=== PATIENT | male | born 1965 | race Hispanic/Latino ===

== ENCOUNTER 2019-12-16 23:29 | Emergency (ER) | payer SELFPAY ==
[~2019-12-16] VITALS: Ht 165.1 cm; Wt 74.8 kg
[2019-12-17] MEDS ORDERED: HYDROCODONE/APAP 7.5MG-325MG 1 EA TAB PO PRN
[2019-12-17] MEDS ORDERED: DIAZEPAM 5 MG TAB PO SCH (00:15)
--- OUTSIDE RECORDS SUMMARY | 2019-12-17 00:30 | XMS REPORT | Continuity of Care Document ---
Author Author [facility] t Organization [facility] Address [address] [place] [address] Phone Unavailable Care Team Providers Care Resource Coordinator Name Role Phone Yue MENCHACA, [facility] PCP Jassi Dupree MD, Tyra Saleem Attphys [phone] Reza Handy MD Attphys Payers Payer Name Policy Type Policy Number Effective Date Expiration Date S courtney [facility] [id number] UNSCREENEDxxxxxxxx [id number] [place] [address] xxxxxxxxx 2019 00:00:00 [facility] Problems Condition Name Condition Details Condition Category Status Onset Date Resolution Date Last Treatment Date Treating Clinician Comments Source Positive occult stool blood test - colon oscopy ordered - pt to call back to schedule Positive occult stool blood test - colon oscopy ordered - pt to call back to schedule Disease Active 2019-11-02 00:00:00 [facility] MSSA bacteremia MSSA bacteremia Disease Active 2018-07-10 00:00:00 [facility] Leukocytosis Leukocytosis Disease Active 2018-06-28 00:00:00 [facility] Blind hypertensive eye, right Blind hypertensive eye, right Disease Active 2015-12-10 00:00:00 [facility] ealt Proliferative diabetic retinopathy of both eyes Prolif erative diabetic retinopathy of both eyes Disease Active 2015-12-10 00:00:00 [facility] Vitamin D deficiency Vitamin D deficiency Disease Active 00:00:00 [facility] Hyperlipemia Hyperlipemia Disease Active 2014-10-09 00:00:00 [facility] Hypertriglyceridemia Hypertriglyceridemia Disease Active 00:00:00 [facility] Proliferative diabetic retinopathy Proliferative diabetic retino ismael Disease Active 2014-09-27 00:00:00 [facility] 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 Disease Active 2014-09-27 00:00:00 [facility] Visual loss, one eye, no light perception (NLP) Visual loss, one eye, no light perception (NLP) Disease Active 2014-09-27 00:00:00 [facility] Type 2 diabetes mellitus with complicati on, with long-term current use of insulin Type 2 diabetes mellitus with complicati on, with long-term current use of insulin Disease Active 2014-09-15 00:00:00 [facility] H/O eye surgery left eye , Laser per pt H/O eye surger y left eye , Laser per pt Disease Active 2014-09-15 00:00:00 [facility] Nicotine dependence Nicotine dependence Disease Active 2014-09-15 00:00 :00 [facility] Blindness of right eye Blindness of right eye Disease Active 2014-09-15 00:00:00 [facility] Abdominal pain Abdominal pain Disease Active 2012-11-22 00:00:00 [facility] Acute right eye pain Acute right eye pain Disease Active [facility] Acute suppurative otitis media of right ear without spontaneous rupture of tympanic membrane Acute suppurative otitis media of right ear without spontaneous rupture of tympanic membrane Disease Active [facility] Positive blood culture Positive blood culture Disease Active [facility] Therapeutic drug monitoring Therapeutic drug monitoring Disease Active [facility] Acute bacterial endocarditis Acute bacterial endocarditis Disease Active [facility] Allergies, Adverse Reactions, Alerts Allergy Name Allergy Type Status Severity Reaction(s) Onset Date Inacti ve Date Treating Clinician Comments Source No Known Allergies DA Active U 2012-12-12 00:00:00 [facility] Social History Social Habit Start Date Stop Date Quantity Comments Source History of tobacco use Cigarette Smoker [facility] Sex Assigned At [facility] Alcohol intake 2018-07-14 00:00:00 2018-07-14 00:00:00 Current drinker of alcohol (finding) [facility] Tobacco Comment 2018-07-09 00:00:00 2018-07-09 00:00:00 half pack per week. [facility] Alcohol Comment 2018-07-09 00:00:00 2018-07-09 00:00:00 occasional [facility] History SDOH Food Worry 2018-04-27 00:00:00 2018-04-27 00:00:00 1 [facility] History SDOH Food Scarcity 2018-04-27 00:00:00 2018-04-27 00:00:00 1 [facility] Smoking Status Start Date Stop Date Source Current some day smoker 2018-07-14 00:00:00 [facility] Medications Ordered Medication Name Filled Medication Name Start Date Stop Da te Current Medication? Ordering Clinician Indication Dosage Frequency Signature (SIG) Comments Components Source lisinopriL (ZESTRIL) 2.5 mg tablet 2019-05-24 00:00:00 Yes Poorly controlled type 2 diabetes mellitus 2.5mg QD Take 1 tablet by mouth daily. [facility] atorvastatin (LIPITOR) 40 mg tablet 2019-05-24 00:00:00 Yes Other hyperlipidemia 40mg Take 1 tablet by mouth at bedtime nightly. [facility] metFORMIN (GLUCOPHAGE) 500 mg tablet 2019-05-24 00:00:00 Yes Poorly controlled type 2 diabetes mellitus 1000mg Take 2 tablets by mouth 2 times daily (with meals). [facility] blood glucose test strips 2019-05-24 00:00:00 Yes Type II diabetes mellitus Check blood glucose 3 times daily. [facility] pen needle, diabetic 31 gauge x 3/16" needles 2019-05-24 00: 00:00 Yes Type II diabetes mellitus Inject under the skin 3 times daily. [facility] lancets 28 gauge 2019-05-24 00:00:00 Yes Type 2 diabetes mellitus without complication, with long-term current use of insulin Check blood glucose 3 times daily. [facility] tropicamide (MYDRIACYL) 0.5 % ophthalmic solution 2019-05-24 00:00:00 2019-11-20 23:59:00 No Type II diabetes mellitus 1[drp] Instill 1 Drop in each eye once as needed for up to 1 dose (for poor retina scan image). [facility] insulin detemir U-100 (LEVEMIR FLEXTOUCH U-100 INSULN) 100 u nit/mL (3 mL) Pen 2019-05-24 00:00:00 2019-08-22 23:59:00 No Type II diabetes alex litus 75U Q.5D Inject 75 Units under the skin 2 times daily [facility] polyethylene glycol (GOLYTELY) 236-22.74-6.74 -5.86 gram ora l solution 2018-07-23 00:00:00 Yes Positive occult stool blood te st Add lukewarm drinking water to the fill yuri (4 liters) and shake. Drink as directed by your doctor.. [facility] tamsulosin (FLOMAX) 0.4 mg extended release capsule 2018-07-15 00:00:00 2019-05-24 00:00:00 No Acute bacterial endocarditis .4mg QD Take 1 capsule by mouth daily. [facility] insulin detemir U-100 (LEVEMIR FLEXTOUCH U-100 INSULN) 100 u nit/mL (3 mL) Pen 2018-06-28 00:00:00 2019-05-24 00:00:00 No Type II diabetes alex litus 75U Q.5D Inject 75 Units under the skin 2 times daily [facility] lisinopril (ZESTRIL) 2.5 mg tablet 2018-06-28 00:00:00 202 00:00:00 No Poorly controlled type 2 diabetes mellitus 2.5mg QD Take 1 tablet by mouth daily. [facility] atorvastatin (LIPITOR) 40 mg tablet 2018-06-28 00:00:0 0 2019-05-24 00:00:00 No Other hyperlipidemia 40mg Take 1 tablet by mouth at b edtime nightly. [facility] metFORMIN (GLUCOPHAGE) 500 mg tablet 2018-06-28 00:00: 00 2019-05-24 00:00:00 No Poorly controlled type 2 diabetes mellitus 500mg Take 1 tablet by mouth 2 times daily (with meals). [facility] fenofibrate nanocrystallized (TRICOR) 145 mg tablet 2018-06-28 00:00:00 2019-05-24 00:00:00 No Hypertriglyceridemia 145mg QD Take 1 tablet by mouth daily. [facility] triamcinolone (KENALOG) 0.1 % ointment 2018-06-10 0 00:00:00 2019-05-24 00:00:00 No Rash and other nonspecific skin eruption Q.5D Apply to affected area 2 times daily. [facility] clotrimazole (LOTRIMIN) 1 % topical cream 2018- 5-20 00:00:00 2019-05-24 00:00:00 No Onychomycosis Q.5D Apply to af fected area 2 times daily For the feet. [facility] blood glucose meter 2017-10-06 00:00:00 Yes Diabetes type 2, uncontrolled [facility].. [facility] blood glucose test strips 2017-10-06 00:00:00 2019-05-24 00: 00:00 No Type II diabetes mellitus Check blood glucose 3 times daily. [facility] pen needle, diabetic 31 gauge x 3/16" needles 20 27-07-04 00:00:00 2019-05-24 00:00:00 No Type II diabetes mellitus Inject under the skin 3 times daily. 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 [facility] lancets 28 gauge 2016-10-01 00:00:00 2019-05-24 00:00:00 No Uncontrolled type 2 diabetes mellitus with other specified complication, unspecified termite treater helper insulin use status Check blood glucose 3 times daily. [facility] Immunizations Ordered Immunization Name Filled Immunization Name Date Status Comments Source Influenza Vaccine, Seasonal, Injectable 2017-03-02 00:00:0 0 Completed [facility] Pneumococcal 13-valent conj 0.5 mL injection 2016-06-05 00 :00:00 Completed [facility] Tdap Tetanus, diphtheria, acellular pertussis Vaccine 2016-05-26 00:00:00 Completed [facility] Influenza Vaccine 2015-12-27 00:00:00 Completed [facility] Influenza Vaccine 2015-04-09 00:00:00 Completed [facility] PPV 23 Pneumococcal Polysaccaride 2015-04-09 00:00:00 Comp leted [facility] Procedures Procedure Date / Time Performed Performing Clinician Sourc e COMPREHENSIVE METABOLIC PANEL 2019-05-26 14:40:00 Harper Scott [facility] HEMOGLOBIN A1C 2019-05-26 14:40:00 Harper Scott is [facility] LIPID PROFILE 2019-05-26 14:40:00 Harper Scott is [facility] HEMOCCULT KIT FOR SPECIMEN COLLECTION AT HOME 2019-05-24 10: 46:19 Harper Scott [facility] Plan of Care Planned Activity Planned Date Details Comments Source Future Scheduled Test 2020-05-25 00:00:00 Hemoglobin A1c karen surement (procedure) [code = 57453099] [facility] Scheduled Test 2019-07-02 00:00:00 Screening for yamile gnant neoplasm of colon (procedure) [code = 279807834] [facility] Scheduled Test 2019-04-28 00:00:00 DM Foot Exam (Year ly) [code = DM Foot Exam (Yearly)] [facility] Scheduled Test 2019-04-28 00:00:00 DM Retinal Exam (Y early) [code = DM Retinal Exam (Yearly)] [facility] Encounters Start Date/Time End Date/Time Encounter Type Admission Type Attendi RUST Care Department Encounter ID Source 2018-07-14 15:16:25 Inpatient [facility] [id number] [facility] 2018-07-12 09:03:39 Inpatient [facility] [id number] [facility] 2018-07-10 09:31:54 Inpatient [facility] [id number] [facility] 2018-07-10 09:07:03 Inpatient [facility] [id number] [facility] 2018-11-26 00:00:00 2018-11-26 00:00:00 Outpatient [facility] [id number] [facility] 2018-10-26 00:00:00 2018-10-26 00:00:00 Outpatient [facility] [id number] [facility] 2018-10-05 00:00:00 2018-10-05 00:00:00 Outpatient [facility] [id number] [facility] 2018-09-27 00:00:00 2018-09-27 00:00:00 Outpatient [facility] [id number] [facility] 2018-08-24 00:00:00 2018-08-24 00:00:00 Outpatient [facility] [id number] [facility] 2018-08-17 00:00:00 2018-08-17 00:00:00 Outpatient [facility] [id number] [facility] 2018-08-10 00:00:00 2018-08-10 00:00:00 Outpatient [facility] [id number] [facility] 2018-08-09 08:47:08 2018-08-09 08:47:08 Outpatient [facility] [id number] [facility] 2018-08-09 08:20:11 2018-08-09 08:20:11 Outpatient [facility] [id number] [facility] 2018-08-09 00:00:00 2018-08-09 00:00:00 Outpatient [facility] [id number] [facility] 2018-08-09 00:00:00 2018-08-09 00:00:00 Outpatient [facility] [id number] [facility] 2018-08-02 00:00:00 2018-08-02 00:00:00 Outpatient [facility] [id number] [facility] 2018-07-28 00:00:00 2018-07-28 00:00:00 Outpatient [facility] [id number] [facility] 2018-07-27 00:00:00 2018-07-27 00:00:00 Outpatient [facility] [id number] [facility] 2018-07-26 00:00:00 2018-07-26 00:00:00 Outpatient [facility] [id number] [facility] 2018-07-19 09:34:27 2018-07-19 09:34:27 Outpatient [facility] [id number] [facility] 2018-07-19 00:00:00 2018-07-19 00:00:00 Outpatient [facility] [id number] [facility] 2018-07-13 00:00:00 2018-07-13 00:00:00 Outpatient [facility] [id number] [facility] 2018-07-09 00:00:00 2018-07-09 00:00:00 Emergency [facility] [id number] [facility] 2018-07-08 14:14:03 2018-07-08 14:14:03 Emergency [facility] [id number] [facility] 2018-07-08 13:53:56 2018-07-08 13:53:56 Inpatient [facility] [id number] [facility] 2018-07-01 15:03:51 2018-07-01 15:03:51 Outpatient [facility] [id number] [facility] 2018-06-28 09:43:09 2018-06-28 09:43:09 Outpatient [facility] [id number] [facility] 2018-06-28 08:41:35 2018-06-28 08:41:35 Outpatient [facility] [id number] [facility] 2018-04-27 13:34:01 2018-04-27 13:34:01 Outpatient [facility] [id number] [facility] 2018-04-27 13:29:45 2018-04-27 13:29:45 Outpatient [facility] [id number] [facility] 2018-04-27 12:47:49 2018-04-27 12:47:49 Outpatient [facility] [id number] [facility] 2018-04-14 08:55:00 2018-04-14 08:55:00 Emergency [facility] [id number] [facility] 2017-12-15 00:00:00 2017-12-15 00:00:00 Outpatient [facility] [id number] [facility] 2017-12-15 00:00:00 2017-12-15 00:00:00 Outpatient [facility] [id number] [facility] 2017-10-05 00:00:00 2017-10-05 00:00:00 Outpatient [facility] [id number] [facility] 2017-10-05 00:00:00 2017-10-05 00:00:00 Outpatient [facility] [id number] [facility] 2017-09-22 00:00:00 2017-09-22 00:00:00 Outpatient [facility] [id number] [facility] 2017-09-09 00:00:00 2017-09-09 00:00:00 Outpatient [facility] [id number] [facility] 2017-07-14 00:00:00 2017-07-14 00:00:00 Outpatient [facility] [id number] [facility] 2017-06-16 00:00:00 2017-06-16 00:00:00 Outpatient [facility] [id number] [facility] 2017-06-16 00:00:00 2017-06-16 00:00:00 Outpatient [facility] [id number] [facility] 2017-06-09 15:43:36 2017-06-09 15:43:36 Outpatient [facility] [id number] [facility] 2017-06-09 15:07:50 2017-06-09 15:07:50 Outpatient [facility] [id number] [facility] 2017-05-20 00:00:00 2017-05-20 00:00:00 Outpatient [facility] [id number] [facility] 2017-04-20 16:09:34 2017-04-20 16:09:34 Outpatient [facility] [id number] [facility] 2017-04-20 00:00:00 2017-04-20 00:00:00 Outpatient [facility] [id number] [facility] 2017-03-13 00:00:00 2017-03-13 00:00:00 Outpatient [facility] [id number] [facility] 2017-03-03 12:43:31 2017-03-03 12:43:31 Outpatient [facility] [id number] [facility] 2017-03-02 15:40:28 2017-03-02 15:40:28 Outpatient [facility] [id number] [facility] 2017-03-02 13:57:45 2017-03-02 13:57:45 Outpatient [facility] [id number] [facility] 2016-11-25 00:00:00 2016-11-25 00:00:00 Outpatient [facility] [id number] [facility] 2016-11-17 00:00:00 2016-11-17 00:00:00 Outpatient [facility] [id number] [facility] 2016-11-07 00:00:00 2016-11-07 00:00:00 Outpatient [facility] [id number] [facility] 2016-10-01 09:15:08 2016-10-01 09:15:08 Outpatient [facility] [id number] [facility] 2016-10-01 08:26:11 2016-10-01 08:26:11 Outpatient [facility] [id number] [facility] 2016-09-12 12:56:13 2016-09-12 12:56:13 Outpatient [facility] [id number] [facility] 2016-07-23 00:00:00 2016-07-23 00:00:00 Outpatient [facility] [id number] [facility] 2016-07-03 13:09:04 2016-07-03 13:09:04 Outpatient [facility] [id number] [facility] Results Test Description Test Time Test Comments Results Result Comments Source Hemoglobin A1C 2019-05-26 21:28:00 Test Item Hemoglobin A1c (test code = 4548-4) 12.6 % 4.3-6.1 H Estimated Average Glucose (test code = 19318281) 315 mg/dL 70-11 0 H Lab Interpretation (test code = 82577-0) [facility]normal [facility] [id number] 21:16:00* Test Item Value Reference Range Interpretation Comments Cholesterol (test code = 2093-3) 249.0 mg/dL <=200.0 H Triglyceride (test code = 80524128) 612 mg/dL <150 H HDL (test code = 2085-9) 40.0 mg/dL See Reference Range Narrative . LDL (test code = 75787-7) Tr iglyceride value is > 400 mg/dl. Unable to calculate LDL value due to high triglyceride. Patient Fasting? (test code = 22821641) No ORVILLE (test code = ORVILLE) Patient is not fasting. For a triglyceride result greater than 440 mg/dL, consider re-testing when the patient is in a fasting state. Lab Interpretation (test code = 58964-7) [facility] [id number] 21:16:00* Test Item Value Reference Range Interpretation Comments Sodium (test code = 2951-2) 137 mmol/L 136-145 Potassium (test code = 2823-3) 4.6 mmol/L 3.5-5.1 Chloride (test code = 2075-0) 102 mmol/L 98-107 CO2 (test code = 87779312) 27 mmol/L 21-31 Glucose (test code = 86126258) 273 mg/dL 70-110 H Calcium (test code = 70784631) 9.4 mg/dL 8.6-10.3 Urea Nitrogen (test code = 78273970) 24.0 mg/dL 7-25 Creatinine (test code = 09880920) 1.0 mg/dL 0.7-1.3 Alkaline Phosphatase (test code = 52194787) 74 U/L 34-104 ALT (test code = 54382261) 24 U/L 7-52 AST (test code = 58639626) 13 U/L 13-39 Total Protein (test code = 2885-2) 7.1 g/dL 6-8.3 GFR, Estimated (test code = 13726242) 78 >=90 mL/min/1.73 m2 L Albumin (test code = 48210-2) 4.1 g/dL 4.2-5.5 L Anion Gap (test code = 19145611) 8 mmol/L 5-16 Lab Interpretation (test code = 17647-2) Abnormal [facility] METABOLIC [id number] 06:46:00* Test Item Value Reference Range Interpretation Comments SODIUM (test code = NA) 136 mmol/L 136-145 N POTASSIUM (test code = K) 4.5 mmol/L 3.5-5.1 N CHLORIDE (test code = CL) 102.0 mmol/L 98-107 N CARBON DIOXIDE (test code = CO2) 27.0 mmol/L 21-32 N ANION GAP (test code = GAP) 11.5 10-20 N GLUCOSE (test code = GLU) 231 mg/dL 74-106 H BLOOD UREA NITROGEN (test code = BUN) 14 mg/dL 7-18 N GLOMERULAR FILTRATION RATE (test code = GFR) > 60 mL/min >=60 Estimated GFR by using Modified MDRD formula.Chronic kidney disease is defined as either kidney damageor GFR <60 mL/min/1.73 m2 for >3 months. CREATININE (test code = CREAT) 0.80 mg/dL 0.7-1.3 N BUN/CREATININE RATIO (test code = BUN/CREA) 17.5 10-20 N CALCIUM (test code = CA) 8.7 mg/dL 8.5-10.1 N HEPATIC FUNCTION [id number] 06:46:00* Test Item Value Reference Range Interpretation Comments TOTAL PROTEIN (test code = PROT) 7.8 gram/dL 6.4-8.2 N ALBUMIN (test code = ALB) 2.5 g/dL 3.4-5.0 L GLOBULIN (test code = GLOB) 5.3 gram/dL 2.7-4.2 H ALBUMIN/GLOBULIN RATIO (test code = A/G) 0.5 0.75-1.50 L BILIRUBIN TOTAL (test code = BILT) 0.20 mg/dL 0.0-1.0 N BILIRUBIN DIRECT (test code = BILD) < 0.05 mg/dL 0.0-0.20 N SGOT/AST (test code = AST) 13 IUnit/L 15-37 L SGPT/ALT (test code = ALT) 15 IUnit/L 12-78 N ALKALINE PHOSPHATASE TOTAL (test code = ALKP) 89 IUnit/L 45-117 N Note change in reference range due to change in reagent. [id number] 06:46:00* Test Item Value Reference Range Interpretation Comments LIPASE (test code = LIP) 120 U/L 73.0-393.0 N BASIC METABOLIC [id number] 06:42:00* Test Item Value Reference Range Interpretation Comments SODIUM (test code = NA) 136 mmol/L 136-145 N POTASSIUM (test code = K) 4.5 mmol/L 3.5-5.1 N CHLORIDE (test code = CL) 102.0 mmol/L 98-107 N CARBON DIOXIDE (test code = CO2) mmol/L 21-32 ANION GAP (test code = GAP) 10-20 GLUCOSE (test code = GLU) mg/dL 74-106 BLOOD UREA NITROGEN (test code = BUN) mg/dL 7-18 GLOMERULAR FILTRATION RATE (test code = GFR) mL/min >=60 CREATININE (test code = CREAT) mg/dL 0.7-1.3 BUN/CREATININE RATIO (test code = BUN/CREA) 10-20 CALCIUM (test code = CA) mg/dL 8.5-10.1 HEPATIC FUNCTION [id number] 06:42:00* Test Item Value Reference Range Interpretation Comments TOTAL PROTEIN (test code = PROT) gram/dL 6.4-8.2 ALBUMIN (test code = ALB) g/dL 3.4-5.0 GLOBULIN (test code = GLOB) gram/dL 2.7-4.2 ALBUMIN/GLOBULIN RATIO (test code = A/G) 0.75-1.50 BILIRUBIN TOTAL (test code = BILT) mg/dL 0.0-1.0 BILIRUBIN DIRECT (test code = BILD) mg/dL 0.0-0.20 SGOT/AST (test code = AST) IUnit/L 15-37 SGPT/ALT (test code = ALT) IUnit/L 12-78 ALKALINE PHOSPHATASE TOTAL (test code = ALKP) IUnit/L 45-117 [id number] 06:42:00* Test Item Value Reference Range Interpretation Comments LIPASE (test code = LIP) U/L 73.0-393.0 CBC W/O [id number] 06:40:00* Test Item Value Reference Range Interpretation Comments WHITE BLOOD CELL (test code = WBC) 11.8 K/mm3 4.5-12.5 N RED BLOOD CELL (test code = RBC) 3.99 mill/mm3 4.0-5.8 L HEMOGLOBIN (test code = HGB) 11.5 gram/dL 13.0-17.5 L HEMATOCRIT (test code = HCT) 34.8 % 42.0-52.0 L MEAN CELL VOLUME (test code = MCV) 87.2 fL 80-98 N MEAN CELL HGB (test code = MCH) 28.8 picogram 27.0-33.0 N MEAN CELL HGB CONCETRATION (test code = MCHC) 33.0 gram/dL 33.0-36. 0 N RED CELL DISTRIBUTION WIDTH (test code = RDW) 11.9 % 11.6-16. 2 N PLATELET COUNT (test code = PLT) 385 K/mm3 150-450 N MEAN PLATELET VOLUME (test code = MPV) 10.6 fL 6.7-11.0 N - US RETROPERITONEAL [id number] 05:35:00 Name: KYLE BROWER [facility] : 1965 Age/S: 53 / M [address] Unit #: [id number] Loc: [place] [address] Phys: Dorian Joyce NP Acct: [id number] Dis Date: Status: PRE ER PHONE #: [phone] Exam Date: 04/18/2018442 FAX #: [phone] Reason: PROBLEMS VOIDING-POSS ENLARGE PROSTATE-RETENTIO EXAMS: CPT CODE: [id number] US RETROPERITONEAL COM [id number] HISTORY: Pain Location: C3 FINDINGS: The right kidney measures 12.3 x 5.7cm and the left measures 12.4 x 6.0 cm. No cystic lesions demonstrated. No solid renal mass is demonstrated. No hydronephrosis. There is normal renal cortical thickness and echogenicity. The bladder is distended with bladder wall thickening noted. Estimated bladder volume is 287 mL. The patient was unable to significantly void with estimated postvoid volume of 258 mL. IMPRESSION: 1. Mildly distended bladder with significant postvoid residual with inability to void. 2. No hydronephrosis. at 0535 Reported and signed by: Davidson Chance MD CC: Sandro Lyon MD; Dorian Joyce CUSTODIAL AIDE Technologist: Hien Silva(S)(ARRT) Trnscb Date/Time: 04/18/2018 (0535) [id number] Orig Print D/T: S: 04/18/2018 (0538) Probe: PAGE 1 Signed Report URINALYSIS COMPLETE 2018-04-18 04:14:00* Test Item Value Reference Range Interpretation Comments UA COLOR (test code = COLU) STRAW YELLOW UA APPEARANCE (test code = APPU) CLEAR CLEAR UA GLUCOSE DIPSTICK (test code = DGLUU) >=500 mg/dL NEGATIVE A UA BILIRUBIN DIPSTICK (test code = BILU) NEGATIVE mg/dL NEGATIVE UA KETONE DIPSTICK (test code = KETU) Negative mg/dL NEGATIVE UA SPECIFIC GRAVITY (test code = SGU) 1.010 1.001-1.035 UA BLOOD DIPSTICK (test code = RODRIGUE) Negative NEGATIVE UA PH DIPSTICK (test code = LEON) 7.0 5.0-8.0 UA PROTEIN DIPSTICK (test code = PROU) Negative mg/dL NEGATIVE UA UROBILINIOGEN DIPSTICK (test code = URO) NEGATIVE mg/dL NEGATIVE UA NITRITE DIPSTICK (test code = GEE) NEGATIVE NEGATIVE UA LEUKOCYTE ESTERASE W REFLEX (test code = LEUUR) 1+ NEG ATIVE A UA WBC (test code = WBCU) 11-20 #/HPF 0-5 A UA RBC (test code = RBCU) 0-2 #/HPF 0-5 Urine Source? Clean CatchURINALYSIS [id number] 01:06:00* Test Item Value Reference Range Interpretation Comments UA COLOR (test code = COLU) YELLOW YELLOW UA APPEARANCE (test code = APPU) CLEAR CLEAR UA GLUCOSE DIPSTICK (test code = DGLUU) 1000(3+) mg/dL NEGATIVE A UA BILIRUBIN DIPSTICK (test code = BILU) NEGATIVE mg/dL NEGATIVE UA KETONE DIPSTICK (test code = KETU) neg mg/dL NEGATIVE UA SPECIFIC GRAVITY (test code = SGU) 1.005 1.001-1.035 UA BLOOD DIPSTICK (test code = RODRIGUE) neg Michael/uL NEGATIVE UA PH DIPSTICK (test code = LEON) 6.0 5.0-8.0 UA PROTEIN DIPSTICK (test code = PROU) 30 (1+) mg/dL Neg-15 A UA UROBILINIOGEN DIPSTICK (test code = URO) norm mg/dL 0.0-0.2 UA NITRITE DIPSTICK (test code = GEE) NEGATIVE NEGATIVE UA LEUKOCYTE ESTERASE DIPSTICK (test code = LEUU) 25 (Trace) uL NEG ATIVE A UA WBC (test code = WBCU) 5-10 per HPF 0-5 A IN SOME URINARY TRACT INFECTIONS THERE MAY NOT BE ENOUGHWBCs IN THE URINE TO TRIGGER AN AUTOMATIC (REFLEX) URINECULTURE. A SEPERATE ORDER FOR URINE CULTURE IS RECOMMENDEDIF THERE IS STRONG SUPPORT FOR A URINARY TRACT INFECTIONCLINICALLY. UA RBC (test code = RBCU) 0-2 per HPF 0-5 UA EPITHELIAL CELLS (test code = EPIU) None seen per HPF Few UA BACTERIA (test code = BACU) NONE SEEN per HPF NONE Urine Source? Clean CatchURINALYSIS [id number] 00:59:00* Test Item Value Reference Range Interpretation Comments UA COLOR (test code = COLU) YELLOW YELLOW UA APPEARANCE (test code = APPU) CLEAR CLEAR UA GLUCOSE DIPSTICK (test code = DGLUU) 1000(3+) mg/dL NEGATIVE A UA BILIRUBIN DIPSTICK (test code = BILU) NEGATIVE mg/dL NEGATIVE UA KETONE DIPSTICK (test code = KETU) neg mg/dL NEGATIVE UA SPECIFIC GRAVITY (test code = SGU) 1.005 1.001-1.035 UA BLOOD DIPSTICK (test code = RODRIGUE) neg Michael/uL NEGATIVE UA PH DIPSTICK (test code = LEON) 6.0 5.0-8.0 UA PROTEIN DIPSTICK (test code = PROU) 30 (1+) mg/dL Neg-15 A UA UROBILINIOGEN DIPSTICK (test code = URO) norm mg/dL 0.0-0.2 UA NITRITE DIPSTICK (test code = GEE) NEGATIVE NEGATIVE UA LEUKOCYTE ESTERASE DIPSTICK (test code = LEUU) 25 (Trace) uL NEG ATIVE A UA WBC (test code = WBCU) per HPF 0-5 Urine Source? Clean Catch
--- OUTSIDE RECORDS SUMMARY | 2019-12-17 00:30 | XMS REPORT | Clinical Summary ---
Author Author [facility] ict Organization 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 Active blood glucose Use as 1 Kit 0 meterIndications: directed.. 8 Diabetes type 2, uncontrolled Active polyethylene glycol Add lukewarm 4000 mL 0 07/23 (GOLYTELY) 236-22.74-6.74 drinking 9 -5.86 gram oral water to the solutionIndications: fill yuri (4 Positive occult stool liters) and blood test shake. Drink as directed by your doctor.. Active lisinopriL (ZESTRIL) 2.5 Take 1 tablet 90 tablet 3 mg tabletIndications: by mouth 0 Poorly controlled type 2 daily. diabetes mellitus Active atorvastatin (LIPITOR) 40 Take 1 tablet 90 tablet 3 mg tabletIndications: by mouth at 0 Other hyperlipidemia bedtime nightly. Active metFORMIN (GLUCOPHAGE) Take 2 180 tablet 3 500 mg tabletIndications: tablets by 0 Poorly controlled type 2 mouth 2 times diabetes mellitus daily (with meals). Active blood glucose test Check blood 100 Each 3 02 stripsIndications: Type glucose 3 0 II diabetes mellitus times daily. Active pen needle, diabetic 31 Inject under 1 Box 11 0 gauge x 3/16" the skin 3 0 needlesIndications: Type times daily. II diabetes mellitus Active lancets 28 Check blood 100 Each 3 gaugeIndications: Type 2 glucose 3 0 diabetes mellitus without times daily. complication, with long-term current use of insulin 05/24/2019 Discontinued (Reorder) lancets 28 Check blood 100 Each 3 gaugeIndications: glucose 3 7 Uncontrolled type 2 times daily. diabetes mellitus with other specified complication, unspecified terminal system operator insulin use status 05/24/2019 Discontinued (Reorder) pen needle, diabetic 31 Inject under 1 Box 11 0 gauge x 3/16" the skin 3 8 needlesIndications: Type times daily. II diabetes mellitus 05/24/2019 Discontinued (Reorder) blood glucose test Check blood 100 Each 3 01 stripsIndications: Type glucose 3 8 II diabetes mellitus times daily. 05/24/2019 Discontinued (Reorder) insulin detemir U-100 Inject 75 136 mL 3 06/10 (LEVEMIR FLEXTOUCH U-100 Units under 9 INSULN) 100 unit/mL (3 the skin 2 mL) PenIndications: Type times daily II diabetes mellitus 05/24/2019 Discontinued (Reorder) lisinopril (ZESTRIL) 2.5 Take 1 tablet 90 tablet 3 06/28/201 mg tabletIndications: by mouth 9 Poorly controlled type 2 daily. diabetes mellitus 05/24/2019 Discontinued (Reorder) atorvastatin (LIPITOR) 40 Take 1 tablet 90 tablet 3 06/28/201 mg tabletIndications: by mouth at 9 Other hyperlipidemia bedtime nightly. 05/24/2019 Discontinued (Reorder) metFORMIN (GLUCOPHAGE) Take 1 tablet 180 tablet 3 0 500 mg tabletIndications: by mouth 2 9 Poorly controlled type 2 times daily diabetes mellitus (with meals). 05/24/2019 Discontinued (Therapy comple brenton) fenofibrate Take 1 tablet 90 tablet 2 nanocrystallized (TRICOR) by mouth 9 145 mg tabletIndications: daily. Hypertriglyceridemia 05/24/2019 Discontinued (Therapy comple brenton) triamcinolone (KENALOG) Apply to 80 g 0 0.1 % affected area 9 ointmentIndications: Rash 2 times and other nonspecific daily. skin eruption 05/24/2019 Discontinued (Therapy comple brenton) clotrimazole (LOTRIMIN) 1 Apply to 28.35 g 0 % topical affected area 9 creamIndications: 2 times daily Onychomycosis For the feet. 05/24/2019 Discontinued (Therapy comple brenton) tamsulosin (FLOMAX) 0.4 Take 1 90 capsule 1 mg extended release capsule by 9 capsuleIndications: mouth daily. Pyelonephritis, MSSA bacteremia, Acute bacterial endocarditis 08/22/2019 insulin detemir U-100 Inject 75 135 mL 0 05/10 (LEVEMIR FLEXTOUCH U-100 Units under 0 INSULN) 100 unit/mL (3 the skin 2 mL) PenIndications: Type times daily II diabetes mellitus 11/20/2019 tropicamide (MYDRIACYL) Instill 1 15 mL 0 0.5 % ophthalmic Drop in each 0 solutionIndications: Type eye once as II diabetes mellitus needed for up to 1 dose (for poor retina scan image). 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 09/27/2014 Visual loss, one eye, no light perception (NLP) 09/09 Type 2 diabetes mellitus with complication, with long -term current use of 09/15/2014 insulin H/O eye surgery left eye , Laser per pt 09/15/2014 Nicotine dependence 09/15/2014 Blindness of right eye 09/15/2014 Abdominal pain 11/22/2012 Acute right eye pain Acute suppurative otitis media of right ear without spontaneous rupture of tympanic membrane Positive blood culture Therapeutic drug monitoring Acute bacterial endocarditis Encounters Care Team Description Date Type Specialty Harper Scott MD Cataract of right eye, unspecified catar act type (Primary Dx); Type II diabetes mellitus; Poorly controlled type 2 diabetes mellitus; Other hyperlipidemia; Diabetes type 2, uncontrolled; Type 2 diabetes mellitus without complication, with long-term current use of insulin; Colon cancer screening 05/24/2019 Telephonic Family Practice Encounter Harper Scott MD 05/24/2019 Orders Only Family Practice Reza Handy Jr., MD 01/19/2019 Orders Only Family Practice after 12/16/2018 Immunizations Name Administration Dates Next Due Influenza Vaccine 12/27/2015, 04/09/2015 Influenza Vaccine, 03/02/2017 Seasonal, Injectable PPV 23 Pneumococcal 04/09/2015 Polysaccaride Pneumococcal 13-valent 06/05/2016 conj 0.5 mL injection Tdap Tetanus, diphtheria, 05/26/2016 acellular pertussis Vaccine Social History Date Tobacco Use Types Packs/Day Years Used Current Some Day Smoker Cigarettes 0 Smokeless Tobacco: Never Used Tobacco Cessation: Ready to Quit: No; Co unseling Given: No Comments: half pack per week. Drinks/Week oz/Week Comments Alcohol Use 0 Standard drinks or equivalent 0.0 occasional Yes Food Insecurity Answer Date Recorded Within the past 12 months, you worried that your Never hernandez e 04/27/2018 food would run out before you got money to buy more. Within the past 12 months, the food you bought Never true 04/27/2018 just didn't last and you didn't have mo maggie to get more. Sex Assigned at Date Recorded Not on file Industry Job Start Date Occupation Not on file Not on file Not on file Travel End Travel History Travel Start No recent travel history available. Last Filed Vital Signs Not on file Plan of Treatment Health Maintenance Due Date Last Done Comments DM Foot Exam (Yearly) 04/28/2019 04/27/2018, 10/01/2016 DM Retinal Exam (Yearly) 04/28/2019 04/27/2018, 03/03/2017, 02/12/2016 (Previously completed - External), Additional history exists Colorectal Cancer Scrn 07/02/2019 07/01/2018, Annual (FIT/FOBT) Age 52 03/03/2017 to 77 DM HGBA1C (Yearly) 05/25/2020 05/26/2019, 08/09/2018, 07/10/2018, Additional history exists Goals Goal Patient Associated Recent Progress Patient-Stat Aut hor Goal Type Problems ed? Reduce portion size Diet No [place], Enzo Leanne, KARIE Note: Drink one diet soda a day instead of 3-4. LOWER BLOOD GLUCOSE Lifestyle No Andrez Riley MD Reduce medication usage Lifestyle No Laura Murphy Exercise Regularly Self No Gerardo Putnam RN Procedures Comments Procedure Name Priority Date/Time Associated Diag nosis LIPID PROFILE Routine 05/26/2019 Type II diabete s mellitus 2:40 PM CDT HEMOGLOBIN A1C Routine 05/26/2019 Type II diabete s mellitus 2:40 PM CDT COMPREHENSIVE METABOLIC Routine 05/26/2019 Type I I diabetes mellitus PANEL 2:40 PM CDT HEMOCCULT KIT FOR Routine 05/24/2019 Colon cancer screening SPECIMEN COLLECTION AT 10:46 AM CDT HOME after 12/16/2018 Results * Hemoglobin A1C (05/26/2019 2:40 PM CDT) Hemoglobin A1c 12.6 (H) 4.3 - 6.1 % [facility] Estimated 315 (H) 70 - 110 mg/dL [facility] Average Glucose [facility] Specimen Blood Performing Organization Address City/State/[facility] Ph one Number [facility] [address] [place] [address] * Comprehensive Metabolic Panel (05/26/2019 2:40 PM CDT) Sodium 137 136 - 145 mmol/L [facility] Potassium 4.6 3.5 - 5.1 mmol/L [facility] Chloride 102 98 - 107 mmol/L [facility] CO2 27 21 - 31 mmol/L [facility] Glucose 273 (H) 70 - 110 mg/dL [facility] Calcium 9.4 8.6 - 10.3 mg/dL [facility] Urea Nitrogen 24.0 7.0 - 25.0 mg/dL [facility] Creatinine 1.0 0.7 - 1.3 mg/dL [facility] Alkaline 74 34 - 104 U/L [facility] Phosphatase [facility] ALT 24 7 - 52 U/L [facility] AST 13 13 - 39 U/L [facility] Bilirubin, 0.3 0.2 - 1.2 mg/dL [facility] Total [facility] Total Protein 7.1 6.0 - 8.3 g/dL [facility] GFR, Estimated 78 (L) >=90 mL/min/1.73 m2 [facility] Albumin 4.1 (L) 4.2 - 5.5 g/dL [facility] Anion Gap 8 5 - 16 mmol/L [facility] Specimen Blood Performing Organization Address City/State/Zipcode Ph one Number [facility] [address] [place] [address] * Lipid Profile (05/26/2019 2:40 PM CDT) Cholesterol 249.0 (H) <=200.0 mg/dL [facility] Triglyceride 612 (H) <150 mg/dL [facility] HDL 40.0 See Reference Range [facility] Narrative. mg/dL [facility]ORY LDL Comment: Triglyceride value is [facility] > 400 mg/dl. Unable to LABORATORY calculate LDL value due to high triglyceride. Patient No [facility] Fasting? LABORATORY Specimen Blood Narrative Performed At Patient is not fasting. For a triglyceride result gre ater than 440 mg/dL, [facility] consider re-testing when the patient is in a fasting state. Performing Organization Address City/State/Zipcode Ph one Number [facility] [address] [place] [address] [phone] after 12/16/2018 Insurance Type Payer Benefit Subscriber ID Effective Phone Address Plan / Dates Group [facility] SELF-PAY SELF-PAY xxxxxxxxx 2019- [phone] [place] [address] Advance Directives Date Inactivated Comments Code Status Date Activated 07/15/2018 4:20 PM Full Code 07/09/2018 8:24 AM
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
--- NOTE | 2019-12-17 01:07 | Diagnostic Imaging Report ---
THORACIC SP 3V - 3 views HISTORY: Pain COMPARISON: None available. FINDINGS: Bones: No acute displaced fracture. Osseous alignment is within normal limits. Vertebral body heights are maintained. The discspaces are well-maintained. Soft tissues: The soft tissues appear unremarkable. IMPRESSION: No acute radiographic abnormality. Signed by: Dr. Nicola Ly MD on 12/17/2019 1:04 AM
--- NOTE | 2019-12-17 01:09 | Diagnostic Imaging Report ---
Lumbar Spine Radiographs: 5 radiographs HISTORY: Pain COMPARISON: None available. DISCUSSION: Some of the osseous structures are partially obscured by stool and bowel gas. There are five non-rib bearing lumbar vertebral bodies. Vertebral body heights are maintained. No displaced fracture or compression deformity is identified. L5 pars defects with grade I, L5-S1 spondylolisthesis. IMPRESSION: No acute radiographic abnormality. L5 pars defects with grade I, L5-S1 spondylolisthesis. Signed by: Dr. Nicoal Ly MD on 12/17/2019 1:05 AM
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
[2019-12-17] MEDS ORDERED: ROBAXIN-750750 MG PO (01:38)
[2019-12-17] MEDS ORDERED: VALIUM2 MG PO (01:38)
[2019-12-17] MEDS ORDERED: ULTRAM50 MG PO (01:56)
[2019-12-17 02:20] VITALS: BP 141/74
== END 2019-12-17 02:00 | disposition home or self-care (01) ==
LOC: ER 12-17 00:28
DX: M54.6 Pain in thoracic spine (principal); M54.5 Low back pain; S00.83XA Contusion of other part of head, initial encounter; V43.52XA Car driver injured in collision with other type car in traffic accident, initial encounter; Y92.488 Other paved roadways as the place of occurrence of the external cause; E11.9 Type 2 diabetes mellitus without complications
CPT/HCPCS: 70450; 72072; 72110; 99283